=== PATIENT | male | born 1980 | race Caucasian/White ===

== ENCOUNTER → 2018-05-22 | Outpatient (CLI) | payer BC ==
[2014-04-24 14:40] VITALS: BP 131/83
--- NOTE | 2018-05-22 09:52 | KCIC ---
MRI Lumbar Spine without contrast History: Low back pain, lifting injury several months ago, progressive right lower extremity pain and numbness Technique: Multiplanar, multi sequential noncontrast MR imaging was performed of the lumbar spine. Contrast: None Comparison: None Findings: There is mild motion. Lumbar vertebral body stature and AP alignment are preserved. There is mild to moderate degenerative disc disease at L5-S1 and to lesser degree at L4-5, mild disc desiccation more superior levels. Conus terminates at L1. There is mild L4-5 and L5-S1 and inferior L1 endplate edema likely reactive/degenerative in etiology. L3-L4: Spinal canal and neural foramina are adequate. There is mild facet degenerative change. L4-L5: There is minimal disc osteophyte complex and superimposed shallow bulge/protrusion more eccentric to the right lateral recess. There is mild right lateral recess stenosis, contact of the descending right L5 nerve root. Neural foramina are adequate. There is mild facet degenerative change. L5-S1: There is disc osteophyte complex and bulge, probable superimposed shallow extrusion extending below the intervertebral disc space in the far left lateral recess measuring about 5 mm CC by 4 mm AP by 6 mm transverse. There is contact of the descending S1 nerve roots greater on the left, mild narrowing of the left lateral recess. There is [id number], right greater than left neural foramina compromise. Impression: 1. There is degenerative disc disease greatest at L5-S1, to lesser degree L4-5. There is mild spondylosis. There is mild right lateral recess stenosis L4-5 with contact descending right L5 nerve root. There is also mild left lateral recess stenosis at L5-S1, contact of the descending S1 nerve roots bilaterally at L5-S1 greater on the left. 2. There is [id number], right greater than left L5-S1 neural foramina compromise. Electronically signed by: Laurent Pollock MD (05/22/2018 9:48 AM) [facility]
== END | disposition home or self-care (01) ==
LOC: KCIC MRI 08:36
PROVIDERS: ATTEND Family Medicine
DX: M51.37 Other intervertebral disc degeneration, lumbosacral region (principal); M47.896 Other spondylosis, lumbar region; M48.07 Spinal stenosis, lumbosacral region; M48.061 Spinal stenosis, lumbar region without neurogenic claudication; M25.78 Osteophyte, vertebrae
CPT/HCPCS: 72148

== ENCOUNTER → 2018-06-23 | Outpatient (CLI) | payer BC ==
[2014-04-24 14:40] VITALS: BP 131/83
[~2018-06-23] MED LIST: BUPR150T15 PO; METH-38 PO; OLME20TA17 PO; OXYC-323 PO; SENN1TAB8 PO
--- NOTE | 2018-06-23 16:04 | EKG ---
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
[2018-06-23 16:10] LABS: BASO # 0.1 x10^3/uL (0.0-0.2); BASO % 1 % (0-3); EOS # 0.2 x10^3/uL (0.0-0.7); EOS % 3 % (0-3); HEMATOCRIT 47.2 % (39.0-53.0); HEMOGLOBIN 16.5 g/dL (13.0-17.5); LYMPH % 28 % (24-48); MEAN CORPUSCULAR HEMOGLOBIN 32 pg (25-35); MEAN CORPUSCULAR HGB CONC 35 g/dL (31-37); MEAN CORPUSCULAR VOLUME 92 fL (79-100); MONO # 0.9 x10^3/uL (0.0-1.1); MONO % 12 % (0-9); NEUT # 4.2 x10^3uL (1.8-7.7); NEUT % 57 % (31-73); PLATELET COUNT 225 x10^3/uL (140-400); RED BLOOD COUNT 5.12 x10^6/uL (4.30-5.70); RED CELL DISTRIBUTION WIDTH 13.1 % (11.5-14.5); WHITE BLOOD COUNT 7.3 x10^3/uL (4.0-11.0)
[2018-06-23 16:17] LABS: CALCIUM 9.7 mg/dL (8.5-10.1); CREATININE 1.1 mg/dL (0.7-1.3); GFR 74.9
[2018-06-23 16:20] LABS: PROTHROMBIN TIME PATIENT 12.5 SEC (11.7-14.0)
--- NOTE | 2018-06-23 17:59 | RAD ---
EXAM: PA and Lateral Views of the Chest DATE: 06/23/2018 4:16 PM INDICATION: SPINE PREHAB CLASS- HX HYPERTENSION PREOP EVAL, LUMBAR SURGERY 06/24/18 AM COMPARISON: No Prior FINDINGS: The heart is not enlarged. Mediastinal and hilar contours are normal. No focal parenchymal airspace opacity. No pleural effusion or pneumothorax. Eventration of the right diaphragm is seen. IMPRESSION: 1. No radiographic evidence for acute cardiopulmonary process. Electronically signed by: Fransico Kolb MD (06/23/2018 5:56 PM) [facility]2
== END | disposition home or self-care (01) ==
LOC: SURGPAT 13:45
PROVIDERS: ATTEND Neurological Surgery
DX: Z01.818 Encounter for other preprocedural examination (principal); M51.16 Intervertebral disc disorders with radiculopathy, lumbar region; J98.6 Disorders of diaphragm; I10 Essential (primary) hypertension; R53.1 Weakness
CPT/HCPCS: 36415; 71046; 80048; 85025; 85610; 85730; 87641; 93005

== ENCOUNTER → 2018-06-24 | Day surgery (SDC) | payer BC ==
[~2018-06-24] MED LIST changes: +ALBUTEROL SULFATE 2.5 MG/3 ML NEBU. NEB ONE; +BACITRACIN 50,000 UNIT in IV NORMAL SALINE 1000ML BAG 1,000 ML IRR ONE; +BUPIVAC MPF-EPI 0.5%-1:200000 30 ML VIAL. ONE; +DEXAMETHASONE SOD PHOS 20 MG/5 ML VIAL. ONE; +GELATIN SPONGE SIZE 100. ONE; +GLYCOPYRROLATE 1 MG/5 ML VIAL. ONE; +HYDROmorphone 2 MG/ML VIAL IV PRN; +IPRATRPIUM/ALBUTEROL 0.5/2.5MG 3 ML NEBU. NEB ONE; +IV RINGERS,LACTATED 1000ML 1,000 ML IV SCH; +LIDOCAINE 1% PF 2 ML VIAL. ID PRN; +LIDOCAINE 1%/EPI 1:100,000 20 ML VIAL. ONE; +MIDAZOLAM HCL/PF 2 MG/2 ML VIAL. ONE; +MINERAL OIL/PETROLATUM,WHITE OPHTH OINT 3.5GM TUBE. ONE; +MORPHINE SULFATE 2 MG/ML VIAL. IV PRN; +NEOSTIGMINE METHYLSULFATE 5 MG/5 ML SYRINGE. ONE; +ONDANSETRON PF 4 MG/2 ML VIAL. IV PRN; +ONDANSETRON PF 4 MG/2 ML VIAL. ONE; +PHENYLEPHRINE 10 MG/ML VIAL. ONE; +PROCHLORPERAZINE 10 MG/2 ML VIAL. IV PRN; +PROPOFOL 0 ML IV ONE; +PROPOFOL 20 ML IV ONE; +PROPOFOL 50 ML IV ONE; +PROTAMINE 50 MG/5 ML VIAL. IV ONE; +REMIFENTANIL 1 MG VIAL. IV ONE; +ROCURONIUM 50 MG/5 ML VIAL. ONE; +SEVOFLURANE > 120 MINUTES. IH ONE; +SUCCINYLCHOLINE 200 MG/10 ML VIAL. ONE; +THROMBIN TOPICAL 20,000 UNIT SPRAY.SYRN KIT TP ONE; +fentaNYL PF VIAL 100 MCG/2 ML VIAL IV PRN; +fentaNYL PF VIAL 100 MCG/2 ML VIAL ONE; +oxyCODONE/APAP 5/325 1 TAB TABLET ONE; +oxyCODONE/APAP 5/325 1 TAB TABLET PO ONE
--- NOTE | 2018-06-24 11:37 | PDOC ---
BRIEF OPERATIVE NOTE Date: Jun 24, 2018 Pre-Op Diagnosis lumbar disk herniation, lumbar radiculopathy, weakness Post-Op Diagnosis same Procedure Performed right L4-5 hemilaminotomy with discectomy Surgeon MD Marleny Blood Tester Fowl RODGER Pickens Anesthesia Type: General Blood Loss 20mL Specimens Obtained disk and decompression Findings significant disk herniation, neuromonitoring significantly upon completion of procedure relative to baseline Complications none apparent DEBORA ADRIAN MD Jun 24, 2018 11:37
--- NOTE | 2018-06-24 11:43 | DISCH ---
DISCHARGE WITH HOME HEALTH DISCHARGE INFORMATION: Condition on Discharge: Stable CODE STATUS: Code Status: Full HOME HEALTH: Face to Face: I certify this patient is under my care and that I, or a nurse practitioner or physician's blood and plasma laboratory assistant working with me, had a face to face encounter that meets the physician face to face encounter requirements with this patient on []. POST DISCHARGE ORDERS: Activity Instructions for Disc: Avoid exertion, Progressive ambulation, Other, see below (avoid strenuous activity, no lifting more than 10 lbs, avoid excess bending or twisting) Weight Bearing Status after Di: Full weight bearing, As tolerated Wound/Incision Care: Ice to area for comfort, Keep wound/cast CDI (May remove dressing day 3 after surgery. May cover with breathable gauze and tape therafter. Keep dry.) Other wound/incision instructi: Keep incision clean and dry at all times. Do not soak, scrub, or submerge. FOLLOW-UP: Follow up with: Dr. Adrian in approximately 2 weeks. [phone] TREATMENT/EQUIPMENT ORDERS: Adaptive Equipment Issued: None CERTIFICATION STATEMENT: Certification Statement: Certification Statement: Based on the above finding, I certify that this patient is confined to the home and needs intermittent fdc care, physical therapy and/or speech therapy, or continues to need occupational therapy.~ This patient is under my care, and I have initiated the establishment of the plan of care.~ This patient will be followed by myself or a community physician who will periodically review the plan of care. Home Meds Reported Medications Olmesartan Medoxomil (BENICAR) 20 Mg Tablet, 20 MG PO DAILY, TAB 06/23/18 Bupropion Hcl (WELLBUTRIN XL) 150 Mg Tab.er.24h, 150 MG PO BID, TAB.SR 06/23/18 DEBORA ADRIAN MD Jun 24, 2018 11:43
[2018-06-24 14:00] VITALS: BP 137/89
--- NOTE | 2018-06-24 19:02 | OP ---
DATE OF SURGERY: 06/24/2018 PREOPERATIVE DIAGNOSES: Lumbar disk herniation with lumbar radiculopathy and weakness. POSTOPERATIVE DIAGNOSES: Lumbar disk herniation with lumbar radiculopathy and weakness. PROCEDURE: Right lumbar 4-5 hemilaminotomy with discectomy. SURGEON: Leobardo Adrian MD. LOAN INTERVIEWER: RODGER Pickens ANESTHESIA: General. COMPLICATIONS: None intraprocedurally. INDICATIONS FOR THE PROCEDURE: The patient is a 37-year-old gentleman who presents with right lower extremity paresthesia as well as weakness correlate to a prominent disk herniation on the right at lumbar 4-5. Please refer to the patient chart for additional details. DESCRIPTION OF PROCEDURE: After informed consent was obtained, the patient was brought into the operating room. He was placed under general anesthesia. He was placed in the prone position on a Suman table and neuro monitoring was instituted and baseline potentials were obtained. It was noted that there was significant asymmetry with significant firing on the right relative to the left at baseline. The lumbar region was prepped and draped in the usual sterile fashion. Fluoroscopy was utilized to localize an appropriate incision location. A vertical incision centered over the region of lumbar 4-5 was made with a 10 blade scalpel. Monopolar electrocautery was utilized to dissect the avascular midline to the spinous processes of lumbar 4 and lumbar 5. Dissection was carried out with electrocautery to the rightward aspect of the lamina at lumbar 4-5. This was again verified with fluoroscopy prior to the initiation of decompression. A pneumatic drill as well as a Kerrison rongeur was utilized to perform a right hemilaminotomy with partial medial facetectomy to expose the underlying ligament. The ligament was gently dissected away from the thecal sac with a blunt nerve hook and removed with the Kerrison rongeur. Neural elements were gently retracted medially and a prominent annulus with disk herniation was exposed and identified. An 11 blade scalpel was utilized to make a small annulotomy at the disk space of lumbar 4-5. Disk material was removed in a piecemeal fashion with pituitary rongeurs. Additional disk material was gently teased posterolaterally with a blunt nerve hook as well as a Gurmeet. This disk material was removed with the pituitary rongeur. Upon completion of the discectomy, the neural elements were noted to be very well decompressed. This was verified with direct visualization as well as gentle palpation with the Tensas and a blunt nerve hook. It was also noted that neuro monitoring potentials were significantly improved upon completion of the decompression. The wound was generously irrigated with antibiotic irrigation. Pristine hemostasis was achieved with FloSeal, cottonoids, generous irrigation and some use of bipolar electrocautery. The muscles and fascia were then reapproximated with 0 Vicryl in a simple interrupted fashion. The subcutaneous tissues were reapproximated with 2-0 Vicryl in interrupted and inverted fashion. The skin was reapproximated with 4-0 Vicryl in a running subcuticular fashion. Mastisol and Steri-Strips were applied and the wound was dressed with Telfa and Tegaderm. At the end of procedure, all needle and sponge counts correct x 2. Neuro monitoring was significantly improved compared to baseline upon completion of the procedure. The patient was subsequently extubated in the operating room and taken to recovery in stable condition. There were no intraprocedural complications apparent. LEOBARDO ADRIAN MD DR: NICHOLE/carlie JOB#: [id number] / [id number] ZAINAB
--- NOTE | 2018-06-26 14:10 | PATHOLOGY ---
[facility] Accession Number: [id number] . 01 Material submitted: . LUMBAR DECOMPRESSION AND DISC . 01 Clinician provided ICD-10: M51.26 . 01 Clinical history: . Lumbar 4-5 disc herniation . 02 Diagnosis: Segments of fibrocartilaginous, fibroadipose, and skeletal muscle tissue and bone, lumbar decompression and disc: - Degenerative changes of fibrocartilaginous tissue. LBQ/06/26/2018 . 02 Comment: There is no evidence of an acute inflammatory process or malignancy. (JPM/db; 06/26/2018) . 02 Electronically signed: . Florencio Espinal MD, Pathologist NPI- [id number] . 01 Gross description: . The specimen is received in formalin, labeled "Artemio Phillips, lumbar decompression and disc", are multiple irregular fragments of weinstein-white to pink, rubbery and gritty tissue admixed with possible bone measuring 3.0 x 2.1 x 0.6 cm in aggregate. [employer] tissue is submitted in A1 after decalcification. ([facility]; 06/24/2018) SHS/SHS . 02 Pathologist provided ICD-10: M51.36 . 02 CPT . 906898, [id number] Specimen Comment: Report sent to / DR BAKER Performed at: 01 [facility] [address], [place] [id number] MD Arnel Griffin MD Phone: [phone] Performed at: 02 [facility] [address] [place], [place] [id number] MD Floerncio Espinal MD Phone: [phone]
== END | disposition home or self-care (01) ==
LOC: SURG 06:56
PROVIDERS: ATTEND Neurological Surgery
DX: M51.16 Intervertebral disc disorders with radiculopathy, lumbar region (principal); I10 Essential (primary) hypertension; F34.1 Dysthymic disorder; E66.09 Other obesity due to excess calories; Z68.38 Body mass index [BMI] 38.0-38.9, adult; F17.210 Nicotine dependence, cigarettes, uncomplicated; Z79.899 Other long term (current) drug therapy; F19.10 Other psychoactive substance abuse, uncomplicated; Z98.890 Other specified postprocedural states; Z72.89 Other problems related to lifestyle
CPT/HCPCS: 63030; 94640; 97161; A7015; J0330; J0690; J1100; J2250; J2405; J2704; J3010; J3490; J7030; J7120; J7613; J7620; 76000; 88304; 88311; J2710

== ENCOUNTER → 2021-04-28 | Outpatient (CLI) | payer OTHER ==
[2018-06-24 14:00] VITALS: BP 137/89
[~2021-04-28] MED LIST changes: -ALBUTEROL SULFATE 2.5 MG/3 ML NEBU. NEB ONE; -BACITRACIN 50,000 UNIT in IV NORMAL SALINE 1000ML BAG 1,000 ML IRR ONE; -BUPIVAC MPF-EPI 0.5%-1:200000 30 ML VIAL. ONE; -DEXAMETHASONE SOD PHOS 20 MG/5 ML VIAL. ONE; -GELATIN SPONGE SIZE 100. ONE; -GLYCOPYRROLATE 1 MG/5 ML VIAL. ONE; -HYDROmorphone 2 MG/ML VIAL IV PRN; -IPRATRPIUM/ALBUTEROL 0.5/2.5MG 3 ML NEBU. NEB ONE; -IV RINGERS,LACTATED 1000ML 1,000 ML IV SCH; -LIDOCAINE 1% PF 2 ML VIAL. ID PRN; -LIDOCAINE 1%/EPI 1:100,000 20 ML VIAL. ONE; -MIDAZOLAM HCL/PF 2 MG/2 ML VIAL. ONE; -MINERAL OIL/PETROLATUM,WHITE OPHTH OINT 3.5GM TUBE. ONE; -MORPHINE SULFATE 2 MG/ML VIAL. IV PRN; -NEOSTIGMINE METHYLSULFATE 5 MG/5 ML SYRINGE. ONE; -ONDANSETRON PF 4 MG/2 ML VIAL. IV PRN; -ONDANSETRON PF 4 MG/2 ML VIAL. ONE; -OXYC-323 PO; +OXYC1TAB15 PO; -PHENYLEPHRINE 10 MG/ML VIAL. ONE; -PROCHLORPERAZINE 10 MG/2 ML VIAL. IV PRN; -PROPOFOL 0 ML IV ONE; -PROPOFOL 20 ML IV ONE; -PROPOFOL 50 ML IV ONE; -PROTAMINE 50 MG/5 ML VIAL. IV ONE; -REMIFENTANIL 1 MG VIAL. IV ONE; -ROCURONIUM 50 MG/5 ML VIAL. ONE; +SENN-161 PO; -SENN1TAB8 PO; -SEVOFLURANE > 120 MINUTES. IH ONE; -SUCCINYLCHOLINE 200 MG/10 ML VIAL. ONE; -THROMBIN TOPICAL 20,000 UNIT SPRAY.SYRN KIT TP ONE; -fentaNYL PF VIAL 100 MCG/2 ML VIAL IV PRN; -fentaNYL PF VIAL 100 MCG/2 ML VIAL ONE; -oxyCODONE/APAP 5/325 1 TAB TABLET ONE; -oxyCODONE/APAP 5/325 1 TAB TABLET PO ONE
--- NOTE | 2021-04-28 09:34 | KCIC ---
EXAM: CT coronary artery calcium screening; radiologist over read. HISTORY: Coronary artery calcium screening. Cigarette smoking. Hypertension. Family history of heart disease. TECHNIQUE: Computed tomographic images of the chest were obtained without contrast. Multiplanar refor matting was performed. *One or more of the following individualized dose reduction techniques were utilized for this examina tion: 1. Automated exposure control. 2. Adjustment of the mA and/or kV according to patient size. 3. Use of iterative reconstruction technique. COMPARISON: None. FINDINGS: The heart is normal in size. The visualized aorta is normal in caliber. There are calcified right greater than left hilar and subcarinal carinal granulomas. There is no pathologically enlarged lymph node. There is no pneumothorax or pleural effusion. There is a 9 mm subsolid nodular opacity w ithin the posterior right lower lobe with suspected punctate calcification and adjacent tiny 1 and 2 mm nodules, likely postinfectious or postinflammatory in etiology. There is hepatic steatosis. No huey picious osseous lesion is seen. Coronary artery calcium score: 0. IMPRESSION: 1. Coronary artery calcium score of 0. 2. 9 mm subsolid nodular opacity containing a suspected punctate calcification and surrounded by tiny 1 mm and 2 mm nodular opacities within the right lower lobe. The imaging appearance favors a postinf ectious or postinflammatory etiology. Follow-up can be performed in 6 months to confirm benignity. 3. Healed granulomas disease. 4. Hepatic steatosis. Electronically signed by: Johanne Bateman MD (04/28/2021 9:32 AM) [id number]
== END ==
LOC: KCIC CT 09:01
PROVIDERS: ATTEND Physician Assistant Medical
DX: K76.0 Fatty (change of) liver, not elsewhere classified (principal); Z82.49 Family history of ischemic heart disease and other diseases of the circulatory system
CPT/HCPCS: 75571